=== PATIENT | male | born 1990 | race Caucasian/White ===

== ENCOUNTER → 2020-11-15 | Day surgery (SDC) | payer BC ==
[~2020-11-15] MED LIST: ALL DAY ALLERGY10 M2 PO; BENADRYL25 MG PO; COLACE100 MG PO; HYDROCODON-ACE1 EAC4 PO; MULTI-VITAMIN1 EACH PO; VISION PLUS LU1 EACH PO; XYZAL5 MG PO
== END | disposition home or self-care (01) ==
LOC: OR 07:30
DX: K40.90 Unilateral inguinal hernia, without obstruction or gangrene, not specified as recurrent (principal); Z79.899 Other long term (current) drug therapy
CPT/HCPCS: C1781; J0690; J1100; J1885; J2001; J2250; J2405; J2704; J3010; J7120